=== PATIENT | female | born 1985 | race Two or more races ===

== ENCOUNTER 2021-11-16 19:34 | Emergency (ER) | payer SELFPAY ==
[~2021-11-16] VITALS: Ht 160 cm; Wt 62.5 kg
[~2021-11-16 19:34] MED LIST: ACET-704 PO; IBUP-1060 PO
--- NOTE | 2021-11-16 19:42 | PHYS DOC ---
Past Medical History Past Medical History: No Pertinent History Smoking Status: Never Smoker Alcohol Use: None Drug Use: None General Adult EDM: Chief Complaint: CHEST PAIN HPI: HPI: Patient is a 35 year old female who presents with greater than 2 weeks history of intermittent left-sided chest pain and left shoulder and back pain. The pain is worse at night in the morning, improved throughout the day. She reports mild shortness of breath only in the morning and at night as well. She denies any pleuritic pain. She denies cough, hemoptysis. She denies fevers or chills. She denies dizziness, diaphoresis, Agnes nausea vomiting. She denies any lower pain or swelling. She denies syncope or near syncope. She denies numbness, tingling, motor weakness. No change in symptoms today. She reports the pain is actually very mild or essentially gone at present. She was seen at an outpatient clinic recently for this, she had an EKG, she was told to follow- up with a county superintendent of schools, and she was reportedly sent some type of referral to help somewhere, but she has not received any phone call back. No recent surgery, travel, prolonged immobilization or hospitalization. Review of Systems: Review of Systems: Constitutional: Denies fever or chills. [] HENT: Denies nasal congestion or sore throat. [] Respiratory: Denies cough or shortness of breath. [] Cardiovascular: Reports chest pain for > 2 weeks. Denies dizziness, syncope, cyanosis, edema. GI: Denies abdominal pain, nausea, vomiting : Denies urinary symptoms Musculoskeletal: Left shoulder and left upper back pain. Integument: Denies rash. [] Neurologic: Denies headache, focal weakness or sensory changes. Denies dizziness or syncope. Psychiatric: Denies depression or anxiety. [] Heart Score: C/O Chest Pain: Yes HEART Score for Chest Pain: HEART Score for Chest Pain Response (Comments) Value History Slighlty/Non-Suspicious 0 ECG Normal 0 Age < 45 0 Risk Factors No Risk Factors 0 Troponin < Normal Limit 0 Total 0 Risk Factors: Risk Factors: DM, Current or recent (<one month) smoker, HTN, HLP, family history of CAD, obesity. Risk Scores: Score 0 - 3: 2.5% MACE over next 6 weeks - Discharge Home Score 4 - 6: 20.3% MACE over next 6 weeks - Admit for Clinical Observation Score 7 - 10: 72.7% MACE over next 6 weeks - Early Invasive Strategies Allergies: Allergies: Allergies Coded Allergies Type Severity Reaction Last Updated Verified No Known Drug Allergies 05/31/14 No Physical Exam: PE: Constitutional: Well developed, well nourished, no acute distress, non-toxic appearance. [] HENT: Normocephalic, atraumatic Eyes: Sclera are clear and anicteric Neck: Normal range of motion, no tenderness, supple, no stridor. Achy midline, no tenderness, no JVD. Cardiovascular:Heart rate regular rhythm, 2 radial and +2 posterior tibial pulses bilaterally. No cyanosis. No edema. Lungs & Thorax: Bilateral breath sounds clear to auscultation, palpation of left upper chest and left shoulder reproduces pain. No crepitus or step-offs. Lungs are clear without rales, rhonchi or wheezes. No stridor. No retractions. No evidence of chest or thorax trauma. Abdomen: Abdomen is soft, nondistended, nontender to palpation. Skin: Warm, dry, no erythema, no rash. [] Back: No tenderness, no CVA tenderness. [] Extremities: No tenderness, no cyanosis, no clubbing, ROM intact, no edema. No calf tenderness. Neurologic: Alert and oriented X 3, normal motor function, normal sensory function, no focal deficits noted. [] Psychologic: Affect normal, judgement normal, mood normal. [] EKG: EKG: EKG is interpreted at 1741 Rhythm is sinus Rate is 84 bpm [place] is normal No STEMI No acute ischemia Radiology/Procedures: Radiology/Procedures: IMAGING REPORT Signed PATIENT: DEREJE HARDY ACCOUNT: [id number] : 1985 LOCATION: ER AGE: 35 SEX: F EXAM STATUS: REG ER ORD. PHYSICIAN: GI STINSON DO REASON: chest pain PROCEDURE: PORTABLE CHEST 1V EXAMINATION: XR CHEST 1V CLINICAL HISTORY: Chest pain. EXAM DATE/TIME: 11/16/2021 8:07 PM COMPARISON: None FINDINGS: Lines, Tubes, and Devices: None. Cardiomediastinal Silhouette: Within normal limits. Lungs and Pleura: No evidence of focal airspace consolidation or pleural effusion. Pulmonary vasculature unremarkable. Bones and Soft Tissues: No acute osseous abnormality. IMPRESSION: No evidence of acute cardiopulmonary abnormality. Electronically signed by: Vj Bosch DO (11/16/2021 8:32 PM) [facility] DICTATED and SIGNED BY: VJ BOSCH DO DATE: 11/16/212031 Course & Med Decision Making: Course & Med Decision Making Pertinent Labs and Imaging studies reviewed. (See chart for details) Patient declined any pain medication here. She has no subjective pain at present. EKG is nonischemic, normal. Troponin is negative. Emergency department work-up is unremarkable for any acute life-threatening process. No indication for further invasive exams, imaging or admission at this time based on current clinical presentation she is given outpatient resources to establish care with a primary care physician, she is given outpatient cardiology resources as well. Strict return precautions are given. Dragon Disclaimer: Dragon Disclaimer: This electronic medical record was generated, in whole or in part, using a voice recognition dictation system. Departure Departure Impression: Primary Impression: Atypical chest pain Disposition: 01 HOME / SELF CARE / HOMELESS Condition: STABLE Referrals: KAYA CAMPBELL MD,BRITTON CORREIA MD, MD Patient Instructions: Chest Pain (Nonspecific) Additional Instructions: Return to the ER for acute changes in pain, more severe pain, severe shortness of breath, coughing up blood, severe weakness, dizziness, passing out or other concerns. Please follow-up with your primary care physician. You are also be ing given resources for outpatient cardiology services. Contact them for follow-up as well. GI STINSON DO Nov 16, 2021 19:42
[2021-11-16 20:12] LABS: BASO % 1 % (0-3); EOS % 1 % (0-3); HEMOGLOBIN 11.2 g/dL (12.0-15.5); LYMPH # 2.2 x10^3/uL (1.0-4.8); LYMPH % 37 % (24-48); MEAN CORPUSCULAR HEMOGLOBIN 30 pg (25-35); MEAN CORPUSCULAR HGB CONC 34 g/dL (31-37); MEAN CORPUSCULAR VOLUME 89 fL (79-100); MONO # 0.4 x10^3/uL (0.0-1.1); MONO % 6 % (0-9); NEUT # 3.2 x10^3/uL (1.8-7.7); NEUT % 56 % (31-73); PLATELET COUNT 323 x10^3/uL (140-400); WHITE BLOOD COUNT 5.8 x10^3/uL (4.0-11.0)
[2021-11-16 20:19] LABS: CLARITY,URINE CLEAR; COLOR,URINE STRAW
[2021-11-16 20:20] LABS: BILIRUBIN,URINE NEGATIVE (NEG); PH,URINE 6.5 (<5.0-8.0); PROTEIN,URINE NEGATIVE (NEG-TRACE)
[2021-11-16 20:20] LABS: CALCIUM 9.2 mg/dL (8.5-10.1); CREATININE 0.7 mg/dL (0.6-1.0); GFR 94.7; POTASSIUM 3.8 mmol/L (3.5-5.1)
[2021-11-16 20:21] LABS: NITRITE,URINE NEGATIVE (NEG); UROBILINOGEN,URINE 0.2 mg/dL (0.2 mg/dL); WBC,URINE 0 /HPF (0-4)
[2021-11-16 20:22] LABS: BACTERIA,URINE 0 /HPF (0-FEW)
[2021-11-16 20:23] LABS: PREG TEST PT QUAL NEGATIVE (NEG)
[2021-11-16 20:26] LABS: ALBUMIN 4.1 g/dL (3.4-5.0); ALBUMIN/GLOBULIN RATIO 1.1 (1.0-1.7); TOTAL BILIRUBIN 0.4 mg/dL (0.2-1.0); TOTAL PROTEIN 7.7 g/dL (6.4-8.2)
--- NOTE | 2021-11-16 20:34 | RAD ---
EXAMINATION: XR CHEST 1V CLINICAL HISTORY: Chest pain. EXAM DATE/TIME: 11/16/2021 8:07 PM COMPARISON: None FINDINGS: Lines, Tubes, and Devices: None. Cardiomediastinal Silhouette: Within normal limits. Lungs and Pleura: No evidence of focal airspace consolidation or pleural effusion. Pulmonary vasculat ure unremarkable. Bones and Soft Tissues: No acute osseous abnormality. IMPRESSION: No evidence of acute cardiopulmonary abnormality. Electronically signed by: Vj Dejesus DO (11/16/2021 8:32 PM) BILL
[2021-11-16 22:32] VITALS: BP 103/59
--- NOTE | 2021-11-17 07:55 | EKG ---
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
== END 2021-11-16 23:00 | disposition home or self-care (01) ==
LOC: ER 19:34
DX: R07.89 Other chest pain (principal); M25.512 Pain in left shoulder; M54.6 Pain in thoracic spine; R06.02 Shortness of breath
CPT/HCPCS: 36415; 71045; 80053; 81001; 83690; 83735; 83880; 84484; 84703; 85025; 85379; 93005; 99285-25